=== PATIENT | female | born 1930 | race Caucasian/White ===

== ENCOUNTER 2018-07-20 13:19 | Inpatient (IN) | payer MEDICARE, OTHER ==
[~2018-07-20] VITALS: Ht 162.6 cm; Wt 94.7 kg
[2018-07-20] MEDS ORDERED: SODIUM CHLORIDE 0.9% 1,000ML IVBOLUS ONE (13:30)
[2018-07-20] MEDS ORDERED: ACETAMINOPHEN 650 MG SUPP PR PRN (13:30)
--- NOTE | 2018-07-20 13:30 | NUR ---
PT BIB [facility] FOR ALTERED MENTAL STATUS AND COUGH, FEVER AND CHILLS SINCE LAST NIGHT. PT WITH 102.3 TEMP WHEN ARRIVED. PT VERY DROWSY. PT PLACED ON BP, CARDIAC AND CONT. PULSE OXIMETER. PER DAUGHTERS AT BEDSIDE, PT VERY ALTERED. EKG DONE AND PRESENTED TO MD. IV STARTED IN FIELD. MD AT BEDSIDE.
--- NOTE | 2018-07-20 13:38 | NUR ---
LAB AT BEDSIDE AND BLOOD CULUTURES DRAWN X 2.
[2018-07-20 13:57] LABS: BASOPHILS % (AUTO) 0 % (0-1); EOSINOPHILS % (AUTO) 0 % (1-7); LYMPHOCYTES # (AUTO) 0.55 x10^3/uL (1-3.4); LYMPHOCYTES % (AUTO) 8 % (22-44); MD NO; MEAN CORPUSCULAR HEMOGLOBIN 34.3 pg (27.0-34.8); MEAN PLATELET VOLUME 9.3 fL (7.4-10.4); MONOCYTES % (AUTO) 5 % (2-9); NEUTROPHILS # (AUTO) 5.84 x10^3/uL (1.8-6.8); NEUTROPHILS % (AUTO) 87 % (42-75); PLATELET COUNT 109 x10^3/uL (130-400); RED BLOOD COUNT 4.33 x10^6/uL (3.82-5.3); RED CELL DISTRIBUTION WIDTH 14.1 % (9.6-15.2)
[2018-07-20 14:07] LABS: INTERNATIONAL NORMALIZED RATIO 1.13 (0.93-1.1); PROTHROMBIN TIME 11.9 Seconds (9.6-11.5)
[2018-07-20 14:10] LABS: ALANINE AMINOTRANSFERASE 33 U/L (12-78); ALBUMIN 3.6 g/dL (3.4-5.0); ANION GAP 8 mmol/L (5-15); CHLORIDE 105 mmol/L (98-107); CREATININE 0.99 mg/dL (0.55-1.02)
[2018-07-20] MEDS ORDERED: ACETAMINOPHEN 650 MG SUPP ONE (14:10)
[2018-07-20 14:14] LABS: ALKALINE PHOSPHATASE 158 U/L (45-117); TOTAL PROTEIN 8.3 g/dL (6.4-8.2); TROPONIN I 0.017 ng/mL (0.000-0.045)
[2018-07-20] MEDS ORDERED: LEVOFLOXACIN/PMX 500MG/100ML 100 ML IV SCH (14:30)
[2018-07-20] MEDS ORDERED: FUROSEMIDE 40 MG/4 ML IV ONE (14:30)
[2018-07-20] MEDS ORDERED: FUROSEMIDE 40 MG/4 ML ONE (14:50)
[2018-07-20] MEDS ORDERED: LEVOFLOXACIN/PMX 500MG/100ML 100 ML ONE (14:50)
[2018-07-20] MEDS ORDERED: MORPHINE SULFATE 4 MG/ML, 1ML IVPush PRN (15:00)
[2018-07-20] MEDS ORDERED: ONDANSETRON 2MG/ML, 2ML IVPush PRN ×2 (15:00→16:30)
--- NOTE | 2018-07-20 15:00 | NUR ---
BLOOD CULTURES HAVE BEEN DRAWN AND ANTIBIOTICS GIVEN PER MD ORDER.
[2018-07-20 15:39] LABS: RAPID INFLUENZA A Negative (Negative); RAPID INFLUENZA B Negative (Negative)
--- NOTE | 2018-07-20 16:12 | NUR ---
PT MINICATHED AND URINE SENT TO LAB. RECHECKED TEMP 102.8 ORALLY AWARE.
--- NOTE | 2018-07-20 16:13 | NUR ---
SWALLOW EVAL DONE AND PT TOLERATED A FEW SIPS OF WATER.
[2018-07-20] MEDS ORDERED: IBUPROFEN 200 MG TABLET ONE (16:27)
[2018-07-20] MEDS ORDERED: ACETAMINOPHEN 325 MG TABLET PO PRN (16:30)
[2018-07-20] MEDS ORDERED: LIDODERM 5% PATCH TD PRN (16:30)
[2018-07-20] MEDS ORDERED: ONDANSETRON ODT 4 MG PO PRN (16:30)
[2018-07-20] MEDS ORDERED: hydrALAzine 20 MG/ML, 1ML IVPush PRN (16:30)
[2018-07-20] MEDS ORDERED: LABETALOL 5MG/ML, 20ML IVPush PRN (16:30)
[2018-07-20] MEDS ORDERED: DOCUSATE 100 MG CAPSULE PO PRN (16:30)
[2018-07-20] MEDS ORDERED: GUAIFENESIN/DM 200-20MG, 10ML UDC PO PRN (16:30)
--- NOTE | 2018-07-20 16:33 | NUR ---
PT GIVEN 600MG MOTRIN PER MD ORDER
[2018-07-20 16:48] LABS: MICROSCOPIC NOT IND
[2018-07-20] MEDS ORDERED: HYDR1TAB12 PO (16:49)
[2018-07-20] MEDS ORDERED: POTA10TA PO (16:49)
[2018-07-20 16:50] LABS: FREE T4 (FREE THYROXINE) 0.97 ng/dL (0.76-1.46)
[2018-07-20] MEDS ORDERED: OMEP-110 PO (16:50)
[2018-07-20] MEDS ORDERED: SIMV10TA3 PO (16:50)
[2018-07-20] MEDS ORDERED: LEVO112T2 PO (16:51)
[2018-07-20 16:52] LABS: CULTURE INDICATED? NO
[2018-07-20] MEDS ORDERED: MONT10TA6 PO (16:53)
[2018-07-20] MEDS ORDERED: LOSA100T14 PO (16:53)
[2018-07-20] MEDS ORDERED: PREG150C PO (16:54)
[2018-07-20] MEDS ORDERED: FURO80TA77 PO (16:54)
[2018-07-20] MEDS ORDERED: VERA120C2 PO (16:55)
[2018-07-20] MEDS ORDERED: PRIM50TA PO (16:55)
[2018-07-20] MEDS ORDERED: SERT50TA PO (16:56)
[2018-07-20] MEDS ORDERED: MIRA25TA PO (16:56)
[2018-07-20] MEDS ORDERED: ALBU18HF INH (16:58)
[2018-07-20] MEDS ORDERED: DIGO125T PO (16:59)
[2018-07-20] MEDS ORDERED: PREG75CA PO (16:59)
[2018-07-20] MEDS ORDERED: IBUPROFEN 600 MG TABLET PO ONE (17:00)
--- NOTE | 2018-07-20 17:48 | NUR ---
REPORT GIVEN TO VITALY YUEN.
[2018-07-20 18:33] VITALS: BP 151/81
[2018-07-20] MEDS: ACETAMINOPHEN MC SCH (19:00)
[2018-07-20] MEDS ORDERED: SODIUM CHLORIDE 0.9% 1,000 ML IV ONE (19:00)
[2018-07-20] MEDS ORDERED: ALBUTEROL/IPRATROPIUM 2.5MG/0.5MG, 3 ML NPPB SCH ×2 (19:00→20:00)
[2018-07-20] MEDS: PREGABALIN MC SCH (19:00)
[2018-07-20] MEDS: HYDROCODONE MC SCH (19:00)
[2018-07-20] MEDS ORDERED: ALBUTEROL SULFATE 2.5 MG/3 ML HHN PRN (19:00)
[2018-07-20] MEDS: DIGOXIN 0.125 MG TABLET PO SCH (20:56)
[2018-07-20] MEDS: POTASSIUM CHLORIDE 10 MEQ TABLET.ER PO SCH (20:56)
[2018-07-20] MEDS: PRIMIDONE 50 MG TABLET PO SCH (20:56)
[2018-07-20] MEDS: SIMVASTATIN 10 MG TABLET PO SCH (20:57)
[2018-07-20] MEDS: PREGABALIN 150 MG CAPSULE PO SCH (20:57)
[2018-07-20] MEDS: HYDROcodone/APAP 5/325 TABLET PO SCH (20:57)
[2018-07-20] MEDS: VERAPAMIL ER 120MG TABLET.ER PO SCH (20:57)
[2018-07-21 00:08] VITALS: BP 116/68
[2018-07-21] MEDS: HYDROCODONE MC SCH ×2 (03:00→11:00)
[2018-07-21] MEDS: ACETAMINOPHEN MC SCH ×2 (03:00→11:00)
[2018-07-21] MEDS: PREGABALIN MC SCH ×2 (03:00→11:00)
[2018-07-21 05:07] LABS: MEAN CORPUSCULAR HEMOGLOBIN 33.8 pg (27.0-34.8); MEAN CORPUSCULAR HGB CONC 33.4 g/dL (32.4-35.8); MEAN CORPUSCULAR VOLUME 101.3 fL (80-100); RED CELL DISTRIBUTION WIDTH 14.2 % (9.6-15.2)
[2018-07-21 05:08] LABS: ANION GAP 5 mmol/L (5-15); CALCIUM 7.8 mg/dL (8.5-10.1); CHLORIDE 107 mmol/L (98-107); CREATININE 1.02 mg/dL (0.55-1.02)
[2018-07-21] MEDS: HYDROcodone/APAP 5/325 TABLET PO SCH ×4 (05:26→20:30)
[2018-07-21] MEDS: LEVOTHYROXINE 112 MCG TABLET PO SCH (05:26)
[2018-07-21 06:00] LABS: MD YES; MEAN PLATELET VOLUME 9.2 fL (7.4-10.4); PLATELET COUNT 86 x10^3/uL (130-400)
[2018-07-21 06:03] LABS: <PLATELET ESTIMATE> DECREASED; <RBC MORPHOLOGY> NORMAL; BAND#(MANUAL) 0.58 x10^3/uL; BANDS%(MANUAL) 12 % (0-7); BASOS#(MANUAL) 0.05 x10^3/uL (0-0.1); BASOS% (MANUAL) 1 % (0-1); LYMPH#(MANUAL) 0.62 x10^3/uL (1-3.4); LYMPHS% (MANUAL) 13 % (22-44); MONOS#(MANUAL) 0.24 x10^3/uL (0.3-2.7); MONOS% (MANUAL) 5 % (2-9); SEG#(MANUAL) 3.31 x10^3/uL (1.8-6.8); SEGS% (MANUAL) 69 % (42-75)
[2018-07-21 06:04] LABS: <PLT MORPHOLOGY> NORMAL PLT MORPH
[2018-07-21 07:30] VITALS: BP 115/67
[2018-07-21] MEDS: PRIMIDONE 50 MG TABLET PO SCH ×2 (09:10→20:30)
[2018-07-21] MEDS: PREGABALIN 150 MG CAPSULE PO SCH ×2 (09:11→20:30)
[2018-07-21] MEDS: FUROSEMIDE 80 MG TABLET PO SCH (09:11)
[2018-07-21] MEDS: SERTRALINE 50MG TABLET PO SCH (09:11)
[2018-07-21] MEDS: MONTELUKAST 10 MG TABLET PO SCH (09:11)
[2018-07-21] MEDS: OMEPRAZOLE 20 MG CAPSULE.DR PO SCH (09:12)
[2018-07-21] MEDS: LOSARTAN 25MG TABLET PO SCH (09:12)
[2018-07-21] MEDS: POTASSIUM CHLORIDE 10 MEQ TABLET.ER PO SCH ×2 (09:12→20:31)
[2018-07-21] MEDS: CEFTRIAXONE PMX 1GM/50ML 50 ML IV SCH (09:31)
[2018-07-21] MEDS: AZITHROMYCIN 500 MG in SODIUM CHLORIDE 0.9% 250 ML IV SCH (10:12)
[2018-07-21 12:32] VITALS: BP 120/72
[2018-07-21] MEDS ORDERED: PREGABALIN 25 MG CAPSULE PO SCH (13:00)
[2018-07-21] MEDS: PREGABALIN 75 MG CAPSULE PO SCH (13:09)
[2018-07-21 20:16] VITALS: BP 139/82
[2018-07-21] MEDS: VERAPAMIL ER 120MG TABLET.ER PO SCH (20:30)
[2018-07-21] MEDS: SIMVASTATIN 10 MG TABLET PO SCH (20:30)
[2018-07-21] MEDS: DIGOXIN 0.125 MG TABLET PO SCH (20:31)
[2018-07-22 01:32] VITALS: BP 124/65
[2018-07-22 05:52] LABS: ANION GAP 5 mmol/L (5-15); CALCIUM 8.1 mg/dL (8.5-10.1); CHLORIDE 106 mmol/L (98-107)
[2018-07-22 05:54] LABS: CREATININE 0.81 mg/dL (0.55-1.02)
[2018-07-22 06:00] VITALS: BP 147/78
[2018-07-22] MEDS ORDERED: ASPIRIN 325 MG TABLET PO SCH (06:00)
[2018-07-22] MEDS: LEVOTHYROXINE 112 MCG TABLET PO SCH (06:03)
[2018-07-22] MEDS: HYDROcodone/APAP 5/325 TABLET PO SCH ×3 (06:03→16:08)
[2018-07-22 06:12] LABS: MEAN CORPUSCULAR HEMOGLOBIN 34.1 pg (27.0-34.8); MEAN CORPUSCULAR HGB CONC 33.2 g/dL (32.4-35.8); MEAN CORPUSCULAR VOLUME 102.6 fL (80-100); MEAN PLATELET VOLUME 9.4 fL (7.4-10.4); PLATELET COUNT 91 x10^3/uL (130-400); RED BLOOD COUNT 3.62 x10^6/uL (3.82-5.3)
[2018-07-22 06:28] LABS: MD YES
[2018-07-22 06:31] LABS: <PLATELET ESTIMATE> DECREASED; <PLT MORPHOLOGY> NORMAL PLT MORPH; <RBC MORPHOLOGY> NORMAL; BANDS%(MANUAL) 6 % (0-7); EOS#(MANUAL) 0.35 x10^3/uL (0.0-0.4); EOS% (MANUAL) 7 % (1-7); LYMPH#(MANUAL) 0.75 x10^3/uL (1-3.4); LYMPHS% (MANUAL) 15 % (22-44); MONOS#(MANUAL) 0.25 x10^3/uL (0.3-2.7); MONOS% (MANUAL) 5 % (2-9); SEG#(MANUAL) 3.35 x10^3/uL (1.8-6.8); SEGS% (MANUAL) 67 % (42-75)
[2018-07-22 07:19] VITALS: BP 135/77
[2018-07-22] MEDS ORDERED: ALBUTEROL/IPRATROPIUM 2.5MG/0.5MG, 3 ML NPPB SCH (09:00)
[2018-07-22] MEDS: CEFTRIAXONE PMX 1GM/50ML 50 ML IV SCH (09:01)
[2018-07-22] MEDS: SERTRALINE 50MG TABLET PO SCH (09:14)
[2018-07-22] MEDS: LOSARTAN 25MG TABLET PO SCH (09:14)
[2018-07-22] MEDS: PREGABALIN 150 MG CAPSULE PO SCH (09:14)
[2018-07-22] MEDS: MONTELUKAST 10 MG TABLET PO SCH (09:15)
[2018-07-22] MEDS: PRIMIDONE 50 MG TABLET PO SCH (09:15)
[2018-07-22] MEDS: OMEPRAZOLE 20 MG CAPSULE.DR PO SCH (09:15)
[2018-07-22] MEDS: POTASSIUM CHLORIDE 10 MEQ TABLET.ER PO SCH (09:15)
[2018-07-22] MEDS: FUROSEMIDE 80 MG TABLET PO SCH (09:15)
[2018-07-22 09:31] VITALS: BP 159/83
[2018-07-22] MEDS: AZITHROMYCIN 500 MG in SODIUM CHLORIDE 0.9% 250 ML IV SCH (10:25)
[2018-07-22] MEDS: PREGABALIN 75 MG CAPSULE PO SCH (12:34)
[2018-07-22] MEDS ORDERED: AZIT250T PO ×2 (15:41)
[2018-07-22] MEDS ORDERED: BENZ100C PO (15:41)
[2018-07-22] MEDS ORDERED: CEFP200T PO ×2 (15:41)
[2018-07-22 16:50] VITALS: BP 149/86
[2018-07-22] MEDS ORDERED: ALBU18HF INH (17:56)
[2018-07-22] MEDS ORDERED: DOXY100T PO (17:56)
== END 2018-07-22 18:40 | disposition home health service (06) | DRG 871 ==
LOC: ED 16:14 → EDIP 17:17 → 4WST 17:56
PROVIDERS: ADMIT Internal Medicine; ATTEND Internal Medicine
PROC: 0T9B70Z Drainage of Bladder with Drainage Device, Via Natural or Artificial Opening (ICD-10-PCS; 2018-07-20)
PROC: 5A09357 Assistance with Respiratory Ventilation, Less than 24 Consecutive Hours, Continuous Positive Airway Pressure (ICD-10-PCS; principal; 2018-07-21)
PROC: 5A09357 Assistance with Respiratory Ventilation, Less than 24 Consecutive Hours, Continuous Positive Airway Pressure (ICD-10-PCS; 2018-07-22)
DX: A41.9 Sepsis, unspecified organism (principal); J18.9 Pneumonia, unspecified organism; J44.0 Chronic obstructive pulmonary disease with (acute) lower respiratory infection; G93.40 Encephalopathy, unspecified; J81.1 Chronic pulmonary edema; E86.0 Dehydration; I50.9 Heart failure, unspecified; I48.2 Chronic atrial fibrillation; M19.90 Unspecified osteoarthritis, unspecified site; Z95.0 Presence of cardiac pacemaker; Z88.0 Allergy status to penicillin; Z88.1 Allergy status to other antibiotic agents; Z88.2 Allergy status to sulfonamides
CPT/HCPCS: 36415; 70450; 71045; 71250; 80048; 80053; 80162; 81003; 82140; 83605; 84145; 84439; 84443; 84484; 85025; 85610; 87040; 87081; 87400; 93005; 94640; 96374; 99285; G0378; J0456; J0696; J1940; J1956; J7620; J7030; J7050

== ENCOUNTER 2018-10-02 19:13 | Inpatient (IN) | payer BC, MEDICARE ==
[~2018-10-02] VITALS: Ht 160 cm; Wt 82.2 kg
[~2018-10-02 19:13] MED LIST: ALBU18HF INH; AZIT250T PO; BENZ100C PO; CEFP200T PO; DIGO125T PO; DOXY100T PO; FURO80TA77 PO; HYDR1TAB13 PO; LEVO112T2 PO; LOSA100T14 PO; MIRA25TA PO; MONT10TA6 PO; OMEP-110 PO; POTA10TA PO; PREG150C PO; PREG75CA PO; PRIM50TA PO; SERT50TA PO; SIMV10TA3 PO; VERA120C2 PO
[2018-10-02] MEDS ORDERED: SODIUM CHLORIDE FLUSH 10ML SYR IVF ONE (20:00)
[2018-10-02 20:29] LABS: BASOPHILS # (AUTO) 0.04 x10^3/uL (0-0.1); BASOPHILS % (AUTO) 1 % (0-1); EOSINOPHILS # (AUTO) 0.07 x10^3/uL (0-0.4); EOSINOPHILS % (AUTO) 1 % (1-7); LYMPHOCYTES # (AUTO) 0.78 x10^3/uL (1-3.4); LYMPHOCYTES % (AUTO) 13 % (22-44); MD NO; MEAN CORPUSCULAR HEMOGLOBIN 34.1 pg (27.0-34.8); MEAN CORPUSCULAR HGB CONC 33.6 g/dL (32.4-35.8); MEAN CORPUSCULAR VOLUME 101.7 fL (80-100); MEAN PLATELET VOLUME 9.2 fL (7.4-10.4); MONOCYTES # (AUTO) 0.76 x10^3/uL (0.2-0.8); MONOCYTES % (AUTO) 13 % (2-9); NEUTROPHILS # (AUTO) 4.34 x10^3/uL (1.8-6.8); NEUTROPHILS % (AUTO) 72 % (42-75); PLATELET COUNT 131 x10^3/uL (130-400); RED BLOOD COUNT 4.54 x10^6/uL (3.82-5.3); RED CELL DISTRIBUTION WIDTH 15.3 % (9.6-15.2)
[2018-10-02 20:37] LABS: INTERNATIONAL NORMALIZED RATIO 1.02 (0.93-1.1); PROTHROMBIN TIME 10.7 Seconds (9.6-11.5)
[2018-10-02 20:39] LABS: ALANINE AMINOTRANSFERASE 27 U/L (12-78); ANION GAP 7 mmol/L (5-15); CALCIUM 9.1 mg/dL (8.5-10.1); CHLORIDE 102 mmol/L (98-107); CREATININE 0.86 mg/dL (0.55-1.02)
[2018-10-02 20:43] LABS: ALKALINE PHOSPHATASE 128 U/L (45-117); BILIRUBIN,TOTAL 0.9 mg/dL (0.2-1.0)
[2018-10-02] MEDS ORDERED: HYDROcodone/APAP 5/325 TABLET ONE (21:25)
--- NOTE | 2018-10-02 21:27 | NUR ---
PT MEDICATED PER MAR
[2018-10-02] MEDS ORDERED: HYDROcodone/APAP 5/325 TABLET PO ONE (21:30)
--- NOTE | 2018-10-02 22:04 | NUR ---
ASSISTED PT ONT BEDPAN
[2018-10-02] MEDS ORDERED: PRED5TAB PO (22:10)
--- NOTE | 2018-10-02 22:13 | NUR ---
URINE SAMPLE SENT
[2018-10-02 22:22] LABS: MICROSCOPIC NOT IND
[2018-10-02 22:30] LABS: CULTURE INDICATED? NO
--- NOTE | 2018-10-02 22:39 | NUR ---
PT INCNTINENT OF URINE, PT CLEANED, FULL LINEN CHANGE COMPLETED
[2018-10-03] MEDS ORDERED: ACETAMINOPHEN 650 MG/20.3 ML UDC PO PRN
[2018-10-03] MEDS ORDERED: BISACODYL 10 MG SUPP PR PRN
[2018-10-03] MEDS ORDERED: ENALAPRILAT 1.25 MG/ML, 2ML IV PRN
[2018-10-03] MEDS ORDERED: ONDANSETRON 4 MG TABLET PO PRN
[2018-10-03 00:11] VITALS: BP 153/84
[2018-10-03] MEDS ORDERED: ALBUTEROL SULFATE 2.5 MG/3 ML NPPB PRN (00:30)
[2018-10-03] MEDS ORDERED: POTASSIUM CHLORIDE 20 MEQ TAB.ER.PRT PO ONE (01:00)
[2018-10-03 01:26] VITALS: BP 160/74
[2018-10-03] MEDS ORDERED: HYDROcodone/APAP 5/325 TABLET ONE (01:33)
[2018-10-03] MEDS: HYDROcodone/APAP 5/325 TABLET PO PRN ×2 (01:36→19:42)
[2018-10-03 03:09] VITALS: BP 136/81
[2018-10-03] MEDS ORDERED: ASPI-647 PO (03:57)
[2018-10-03] MEDS ORDERED: CALC-534 PO (04:03)
[2018-10-03] MEDS ORDERED: CHOL200059 PO (04:03)
[2018-10-03] MEDS ORDERED: ASCO500C10 PO (04:03)
[2018-10-03] MEDS ORDERED: GUAI12009 PO (04:03)
[2018-10-03] MEDS ORDERED: SELE200T10 PO (04:10)
[2018-10-03] MEDS ORDERED: UMEC1DIS INH (04:10)
[2018-10-03] MEDS: LEVOTHYROXINE 112 MCG TABLET PO SCH (05:31)
[2018-10-03 05:38] LABS: BASOPHILS # (AUTO) 0.04 x10^3/uL (0-0.1); BASOPHILS % (AUTO) 1 % (0-1); EOSINOPHILS # (AUTO) 0.22 x10^3/uL (0-0.4); EOSINOPHILS % (AUTO) 4 % (1-7); LYMPHOCYTES # (AUTO) 1.25 x10^3/uL (1-3.4); LYMPHOCYTES % (AUTO) 22 % (22-44); MD NO; MEAN CORPUSCULAR HEMOGLOBIN 34.8 pg (27.0-34.8); MEAN CORPUSCULAR HGB CONC 34.5 g/dL (32.4-35.8); MEAN CORPUSCULAR VOLUME 100.7 fL (80-100); MEAN PLATELET VOLUME 8.9 fL (7.4-10.4); MONOCYTES # (AUTO) 0.86 x10^3/uL (0.2-0.8); MONOCYTES % (AUTO) 15 % (2-9); NEUTROPHILS # (AUTO) 3.39 x10^3/uL (1.8-6.8); NEUTROPHILS % (AUTO) 59 % (42-75); PLATELET COUNT 118 x10^3/uL (130-400); RED BLOOD COUNT 4.13 x10^6/uL (3.82-5.3); RED CELL DISTRIBUTION WIDTH 15.2 % (9.6-15.2)
[2018-10-03 05:55] LABS: CHLORIDE 103 mmol/L (98-107)
[2018-10-03] MEDS ORDERED: HYDROcodone/APAP 5/325 TABLET PO SCH (06:00)
[2018-10-03 06:09] LABS: ANION GAP 7 mmol/L (5-15); CALCIUM 8.3 mg/dL (8.5-10.1); CHOL/HDL RATIO 2.1; CHOLESTEROL, TOTAL 151 mg/dL (140-239); CREATININE 0.75 mg/dL (0.55-1.02); HDL CHOL % 47 % (28-40); HDL CHOLESTEROL (DIRECT) 71 mg/dL (40-60); LDL CHOLESTEROL,CALCULATED 62 mg/dL (54-169); LDL/HDL RATIO 0.9 (0.5-3.0); TRIGLYCERIDES 89 mg/dL (50-200); VLDL CHOLESTEROL 18 mg/dL (0-25)
[2018-10-03 07:46] VITALS: BP 165/90
[2018-10-03] MEDS: (Mirabegron** (Myrbetriq**) 25 MG) HOMEMEDPO SCH (09:00)
[2018-10-03] MEDS: PRIMIDONE 50 MG TABLET PO SCH ×2 (09:00→20:50)
[2018-10-03] MEDS: POTASSIUM CHLORIDE 10 MEQ TABLET.ER PO SCH ×3 (09:02→20:50)
[2018-10-03] MEDS: OMEPRAZOLE 20 MG CAPSULE.DR PO SCH (09:02)
[2018-10-03] MEDS: FUROSEMIDE 80 MG TABLET PO SCH (09:03)
[2018-10-03] MEDS: PREGABALIN 150 MG CAPSULE PO SCH ×2 (09:04→20:50)
[2018-10-03] MEDS: SERTRALINE 50MG TABLET PO SCH (09:06)
[2018-10-03] MEDS: ASPIRIN 81 MG TABLET CHEW PO/NG SCH (09:07)
[2018-10-03] MEDS: MONTELUKAST 10 MG TABLET PO SCH (09:08)
[2018-10-03] MEDS: LOSARTAN 25MG TABLET PO SCH (09:09)
[2018-10-03 14:08] LABS: THYROID STIMULATING HORMONE 10.8 mIU/L (0.358-3.740)
[2018-10-03 14:17] VITALS: BP 114/78
[2018-10-03 20:39] VITALS: BP 152/82
[2018-10-03] MEDS: SIMVASTATIN 10 MG TABLET PO SCH (20:50)
[2018-10-03] MEDS: DIGOXIN 0.125 MG TABLET PO SCH (20:50)
[2018-10-03] MEDS: VERAPAMIL ER 120MG TABLET.ER PO SCH (20:51)
[2018-10-04 02:02] VITALS: BP 149/75
[2018-10-04 05:53] LABS: BASOPHILS # (AUTO) 0.05 x10^3/uL (0-0.1); BASOPHILS % (AUTO) 1 % (0-1); EOSINOPHILS # (AUTO) 0.29 x10^3/uL (0-0.4); EOSINOPHILS % (AUTO) 4 % (1-7); LYMPHOCYTES # (AUTO) 1.03 x10^3/uL (1-3.4); LYMPHOCYTES % (AUTO) 15 % (22-44); MD NO; MEAN CORPUSCULAR HEMOGLOBIN 34.5 pg (27.0-34.8); MEAN CORPUSCULAR VOLUME 101.6 fL (80-100); MEAN PLATELET VOLUME 9.4 fL (7.4-10.4); MONOCYTES # (AUTO) 0.89 x10^3/uL (0.2-0.8); MONOCYTES % (AUTO) 13 % (2-9); NEUTROPHILS # (AUTO) 4.63 x10^3/uL (1.8-6.8); NEUTROPHILS % (AUTO) 67 % (42-75); PLATELET COUNT 120 x10^3/uL (130-400); RED BLOOD COUNT 4.38 x10^6/uL (3.82-5.3); RED CELL DISTRIBUTION WIDTH 14.8 % (9.6-15.2)
[2018-10-04 06:06] LABS: ANION GAP 9 mmol/L (5-15); CALCIUM 8.7 mg/dL (8.5-10.1); CHLORIDE 101 mmol/L (98-107)
[2018-10-04 06:07] LABS: CREATININE 0.84 mg/dL (0.55-1.02)
[2018-10-04] MEDS: LEVOTHYROXINE 112 MCG TABLET PO SCH (07:53)
[2018-10-04] MEDS: POTASSIUM CHLORIDE 10 MEQ TABLET.ER PO SCH ×2 (07:53→20:55)
[2018-10-04] MEDS: PRIMIDONE 50 MG TABLET PO SCH ×2 (07:53→20:55)
[2018-10-04] MEDS: SERTRALINE 50MG TABLET PO SCH (07:53)
[2018-10-04] MEDS: OMEPRAZOLE 20 MG CAPSULE.DR PO SCH (07:53)
[2018-10-04] MEDS: ASPIRIN 81 MG TABLET CHEW PO/NG SCH (07:54)
[2018-10-04] MEDS: PREGABALIN 150 MG CAPSULE PO SCH ×2 (07:54→20:54)
[2018-10-04] MEDS: FUROSEMIDE 80 MG TABLET PO SCH (07:54)
[2018-10-04] MEDS: (Mirabegron** (Myrbetriq**) 25 MG) HOMEMEDPO SCH (07:54)
[2018-10-04] MEDS: LOSARTAN 25MG TABLET PO SCH (07:54)
[2018-10-04] MEDS: MONTELUKAST 10 MG TABLET PO SCH (07:54)
[2018-10-04 08:00] VITALS: BP 170/112
[2018-10-04 09:51] VITALS: BP 148/84
[2018-10-04] MEDS: ENOXAPARIN 40 MG/0.4 ML SQ SCH (11:27)
[2018-10-04 13:09] VITALS: BP 111/65
[2018-10-04 19:28] VITALS: BP 153/82
[2018-10-04] MEDS: DIGOXIN 0.125 MG TABLET PO SCH (20:54)
[2018-10-04] MEDS: SIMVASTATIN 10 MG TABLET PO SCH (20:55)
[2018-10-04] MEDS: VERAPAMIL ER 120MG TABLET.ER PO SCH (20:55)
[2018-10-04] MEDS: HYDROcodone/APAP 5/325 TABLET PO PRN (20:55)
[2018-10-05 01:32] VITALS: BP 101/56
[2018-10-05] MEDS: LEVOTHYROXINE 112 MCG TABLET PO SCH (05:29)
[2018-10-05 06:39] LABS: BASOPHILS # (AUTO) 0.04 x10^3/uL (0-0.1); BASOPHILS % (AUTO) 1 % (0-1); EOSINOPHILS # (AUTO) 0.52 x10^3/uL (0-0.4); EOSINOPHILS % (AUTO) 10 % (1-7); LYMPHOCYTES # (AUTO) 1.31 x10^3/uL (1-3.4); LYMPHOCYTES % (AUTO) 25 % (22-44); MD NO; MEAN CORPUSCULAR HEMOGLOBIN 34.8 pg (27.0-34.8); MEAN CORPUSCULAR HGB CONC 34.5 g/dL (32.4-35.8); MEAN CORPUSCULAR VOLUME 100.8 fL (80-100); MEAN PLATELET VOLUME 9.2 fL (7.4-10.4); MONOCYTES # (AUTO) 0.65 x10^3/uL (0.2-0.8); MONOCYTES % (AUTO) 13 % (2-9); NEUTROPHILS # (AUTO) 2.65 x10^3/uL (1.8-6.8); NEUTROPHILS % (AUTO) 51 % (42-75); PLATELET COUNT 117 x10^3/uL (130-400); RED BLOOD COUNT 4.28 x10^6/uL (3.82-5.3); RED CELL DISTRIBUTION WIDTH 14.4 % (9.6-15.2)
[2018-10-05 07:18] VITALS: BP 165/78
[2018-10-05] MEDS: MONTELUKAST 10 MG TABLET PO SCH (08:04)
[2018-10-05] MEDS: OMEPRAZOLE 20 MG CAPSULE.DR PO SCH (08:04)
[2018-10-05] MEDS: SERTRALINE 50MG TABLET PO SCH (08:05)
[2018-10-05] MEDS: LOSARTAN 25MG TABLET PO SCH (08:05)
[2018-10-05] MEDS: ASPIRIN 81 MG TABLET CHEW PO/NG SCH (08:06)
[2018-10-05] MEDS: PRIMIDONE 50 MG TABLET PO SCH ×2 (08:06→21:12)
[2018-10-05] MEDS: POTASSIUM CHLORIDE 10 MEQ TABLET.ER PO SCH ×2 (08:06→21:13)
[2018-10-05] MEDS: PREGABALIN 150 MG CAPSULE PO SCH ×2 (08:07→21:13)
[2018-10-05] MEDS: FUROSEMIDE 80 MG TABLET PO SCH (08:07)
[2018-10-05] MEDS: (Mirabegron** (Myrbetriq**) 25 MG) HOMEMEDPO SCH (09:00)
[2018-10-05] MEDS: ENOXAPARIN 40 MG/0.4 ML SQ SCH (11:29)
[2018-10-05 14:30] VITALS: BP 153/93
[2018-10-05 18:53] VITALS: BP 153/73
[2018-10-05] MEDS: VERAPAMIL ER 120MG TABLET.ER PO SCH (21:12)
[2018-10-05] MEDS: HYDROcodone/APAP 5/325 TABLET PO PRN (21:13)
[2018-10-05] MEDS: SIMVASTATIN 10 MG TABLET PO SCH (21:13)
[2018-10-05] MEDS: DIGOXIN 0.125 MG TABLET PO SCH (21:13)
[2018-10-06 00:06] VITALS: BP 112/64
[2018-10-06] MEDS: LEVOTHYROXINE 112 MCG TABLET PO SCH (04:57)
[2018-10-06 05:36] LABS: BASOPHILS # (AUTO) 0.04 x10^3/uL (0-0.1); BASOPHILS % (AUTO) 1 % (0-1); EOSINOPHILS # (AUTO) 0.46 x10^3/uL (0-0.4); EOSINOPHILS % (AUTO) 10 % (1-7); LYMPHOCYTES # (AUTO) 1.22 x10^3/uL (1-3.4); LYMPHOCYTES % (AUTO) 27 % (22-44); MD NO; MEAN CORPUSCULAR HEMOGLOBIN 34.7 pg (27.0-34.8); MEAN CORPUSCULAR HGB CONC 34.2 g/dL (32.4-35.8); MEAN CORPUSCULAR VOLUME 101.5 fL (80-100); MEAN PLATELET VOLUME 9.4 fL (7.4-10.4); MONOCYTES % (AUTO) 13 % (2-9); NEUTROPHILS # (AUTO) 2.26 x10^3/uL (1.8-6.8); NEUTROPHILS % (AUTO) 49 % (42-75); PLATELET COUNT 119 x10^3/uL (130-400); RED CELL DISTRIBUTION WIDTH 14.4 % (9.6-15.2)
[2018-10-06 07:00] VITALS: BP 107/75
[2018-10-06] MEDS: (Mirabegron** (Myrbetriq**) 25 MG) HOMEMEDPO SCH (08:56)
[2018-10-06] MEDS: PREGABALIN 150 MG CAPSULE PO SCH (09:00)
[2018-10-06] MEDS: POTASSIUM CHLORIDE 10 MEQ TABLET.ER PO SCH (10:08)
[2018-10-06] MEDS: MONTELUKAST 10 MG TABLET PO SCH (10:09)
[2018-10-06] MEDS: LOSARTAN 25MG TABLET PO SCH (10:09)
[2018-10-06] MEDS: FUROSEMIDE 80 MG TABLET PO SCH (10:09)
[2018-10-06] MEDS: OMEPRAZOLE 20 MG CAPSULE.DR PO SCH (10:09)
[2018-10-06] MEDS: ASPIRIN 81 MG TABLET CHEW PO/NG SCH (10:09)
[2018-10-06] MEDS: PRIMIDONE 50 MG TABLET PO SCH (10:09)
[2018-10-06] MEDS: SERTRALINE 50MG TABLET PO SCH (10:09)
[2018-10-06] MEDS: ENOXAPARIN 40 MG/0.4 ML SQ SCH (11:00)
[2018-10-06] MEDS ORDERED: FURO40TA6 PO (11:24)
[2018-10-06] MEDS ORDERED: ASPI-515 PO (11:24)
[2018-10-06 12:24] VITALS: BP 139/78
== END 2018-10-06 14:23 | DRG 914 ==
LOC: ED 21:36 → EDIP 22:14 → 3NW 23:58 → 4EST 10-03 01:55
PROVIDERS: ADMIT Internal Medicine; ATTEND Internal Medicine
PROC: 0T9B70Z Drainage of Bladder with Drainage Device, Via Natural or Artificial Opening (ICD-10-PCS; 2018-10-02)
PROC: 5A09357 Assistance with Respiratory Ventilation, Less than 24 Consecutive Hours, Continuous Positive Airway Pressure (ICD-10-PCS; principal; 2018-10-03)
PROC: 5A09357 Assistance with Respiratory Ventilation, Less than 24 Consecutive Hours, Continuous Positive Airway Pressure (ICD-10-PCS; 2018-10-04)
PROC: 5A09357 Assistance with Respiratory Ventilation, Less than 24 Consecutive Hours, Continuous Positive Airway Pressure (ICD-10-PCS; 2018-10-05)
PROC: 5A09357 Assistance with Respiratory Ventilation, Less than 24 Consecutive Hours, Continuous Positive Airway Pressure (ICD-10-PCS; 2018-10-06)
DX: S09.90XA Unspecified injury of head, initial encounter (principal); F33.9 Major depressive disorder, recurrent, unspecified; I50.32 Chronic diastolic (congestive) heart failure; I43 Cardiomyopathy in diseases classified elsewhere; I11.0 Hypertensive heart disease with heart failure; E78.5 Hyperlipidemia, unspecified; E03.9 Hypothyroidism, unspecified; J44.9 Chronic obstructive pulmonary disease, unspecified; M51.36 Other intervertebral disc degeneration, lumbar region; W01.0XXA Fall on same level from slipping, tripping and stumbling without subsequent striking against object, initial encounter; Z66 Do not resuscitate; G89.29 Other chronic pain; D75.89 Other specified diseases of blood and blood-forming organs; I48.91 Unspecified atrial fibrillation; I70.8 Atherosclerosis of other arteries; I67.1 Cerebral aneurysm, nonruptured; Y93.89 Activity, other specified; Y92.89 Other specified places as the place of occurrence of the external cause; Y99.8 Other external cause status; Z91.81 History of falling; Z87.891 Personal history of nicotine dependence; Z95.0 Presence of cardiac pacemaker; Z88.0 Allergy status to penicillin; Z88.2 Allergy status to sulfonamides; Z88.1 Allergy status to other antibiotic agents
CPT/HCPCS: 36415; 70450; 70551; 71045; 72131; 80048; 80053; 80061; 80162; 81003; 82607; 83880; 84443; 84484; 85025; 85610; 85730; 87040; 93005; 93306; 93880; 94640; 99285; G0378; J1650; 92522-GN; G0515-GN; J7512